=== PATIENT | male | born 1990 | race African-American/Black ===

== ENCOUNTER 2017-06-03 02:41 | Emergency (ER) | payer MEDICAID ==
[~2017-06-03] VITALS: Ht 170.2 cm; Wt 79.0 kg
[2017-06-03] MEDS ORDERED: HYDROCODONE/ACETAMINOPHEN 5/325MG TABLET PO ONE (03:15)
[2017-06-03] MEDS ORDERED: LIDOCAINE HCL 1% 20ML VIAL (Pyxis) INJ MC ONE (03:15)
[2017-06-03] MEDS ORDERED: KETOROLAC 30MG/ML VIAL IM ONE (03:15)
[2017-06-03] MEDS ORDERED: BACITRACIN ZINC OINT UDPKT TOP ONE (03:15)
[2017-06-03] MEDS ORDERED: TETANUS, DIPHTHERIA, PERTUSSIS VAC/PF 0.5ML (>7YR OLD) IM ONE (03:45)
[2017-06-03] MEDS ORDERED: SODIUM CHLORIDE 0.9% 1,000 ML IV ONE (04:33)
[2017-06-03] MEDS ORDERED: CEFAZOLIN 1000MG PREMIX 50 ML IV ONE (04:45)
[2017-06-03 05:17] VITALS: BP 118/66
== END 2017-06-03 06:08 | disposition home or self-care (01) ==
LOC: ER 02:55
DX: S61.212A Laceration without foreign body of right middle finger without damage to nail, initial encounter (principal); F31.9 Bipolar disorder, unspecified; W25.XXXA Contact with sharp glass, initial encounter; Y93.89 Activity, other specified; Y99.8 Other external cause status; Y92.89 Other specified places as the place of occurrence of the external cause
CPT/HCPCS: 12002; 73130; 90471; 90715; 96365; 96372; 99284; A4217; J0690; J1885; J3490; Z7610; J7030

== ENCOUNTER 2017-06-05 09:49 | Emergency (ER) | payer MEDICAID ==
[~2017-06-05] VITALS: Ht 170.2 cm; Wt 79.0 kg
[2017-06-05] MEDS ORDERED: KETOROLAC 60MG/2ML VIAL IM ONE (10:45)
[2017-06-05 10:58] VITALS: BP 123/53
== END 2017-06-05 11:09 | disposition home or self-care (01) ==
LOC: ER 11:08
DX: S61.411D Laceration without foreign body of right hand, subsequent encounter (principal); W25.XXXD Contact with sharp glass, subsequent encounter; Y93.89 Activity, other specified; Y99.8 Other external cause status; Y92.89 Other specified places as the place of occurrence of the external cause
CPT/HCPCS: 96372; 99283; J1885

== ENCOUNTER 2025-04-05 17:12 | Emergency (ER) | payer MEDICAID, OTHER ==
[~2025-04-05] VITALS: Ht 182.9 cm; Wt 82.0 kg
[2025-04-05 17:14] VITALS: O2SAT 99
[2025-04-05 19:45] LABS: HEMATOCRIT. 28.2 % (42.0-52.0); HEMOGLOBIN. 8.3 g/dL (14.0-18.0); MEAN PLATELET VOLUME 6.3 fl (7.4-10.4); PLATELET 213 x1000/uL (130-400); RED BLOOD CELL COUNT 4.11 mill/uL (4.7-6.1); RED CELL DISTRIBUTION WIDTH 22.3 % (11.6-14.6)
[2025-04-05 19:58] LABS: CREATININE 0.7 mg/dL (0.6-1.3); UREA NITROGEN BLOOD < 5 mg/dL (9-23)
[2025-04-05 19:59] LABS: TROPONIN I HIGH SENSITIVITY 4 ng/L (3.0-53)
[2025-04-05 20:00] LABS: ASPARTATE AMINOTRANSFERASE 199 IU/L (<34); BILIRUBIN DIRECT 0.2 mg/dL (<=3.0); BILIRUBIN TOTAL 0.5 mg/dL (0.1-1.0); PROTEIN TOTAL 7.5 g/dL (6.0-8.3)
[2025-04-05 20:07] LABS: EOSINOPHILS % MANUAL 2.0 % (0.0-5.0); LYMPHOCYTES % MANUAL 43.0 % (20.0-50.0); MONOCYTES % MANUAL 7.0 % (2.0-8.0); NEUTROPHILS % MANUAL 48.0 % (45.0-75.0); PLATELET ESTIMATE NORMAL
[2025-04-05] MEDS ORDERED: FAMO20TA8 MT (21:29)
[2025-04-05] MEDS ORDERED: FERR210T MT (21:29)
[2025-04-05] MEDS ORDERED: DOCU100T MT (21:29)
[2025-04-05 21:40] VITALS: BP 156/78; PULSE 87; RESP 18; TEMP 37; O2SAT 100
[2025-04-05 21:45] LABS: TROPONIN I HIGH SENSITIVITY 4 ng/L (3.0-53)
== END 2025-04-05 22:01 | disposition home or self-care (01) ==
LOC: ER 17:12
DX: R07.89 Other chest pain (principal); R00.2 Palpitations; D64.9 Anemia, unspecified; K21.9 Gastro-esophageal reflux disease without esophagitis
CPT/HCPCS: 36415; 71045; 80048; 80076; 84484; 85025; 93005; 99285